=== PATIENT | female | born 1975 | race Caucasian/White ===

== ENCOUNTER 2024-07-03 10:41 | Outpatient (AMB) | payer OTHER, SELFPAY ==
--- NOTE | 2024-07-03 10:43 | MHC.PC.OV ---
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 Intake Note: new patient to establish care Insole Department Worker Required: No Allergies amoxicillin Allergy (Severe, Verified 07/03/24 11:02) Vomiting mold Allergy (Severe, Verified 07/03/24 11:02) Vomiting Penicillins Allergy (Severe, Verified 07/03/24 11:02) Vomiting sun Allergy (Severe, Uncoded 07/03/24 11:02) Blister Medication List - Last Reconciled 07/03/24 by SHANEKA ShineP- citalopram 10 mg PO DAILY clotrimazole-betamethasone 1-0.05 % 1 appl topical BID ketoconazole 2% 1 appl topical 3XW lorazepam 1 mg PO DAILY PRN nystatin 1 appl topical BID tirzepatide (Mounjaro) 2.5 mg subcut QWEEK Tobacco use date assessed: 07/03/24 Dental Screening Dental Screen Date: 07/03/24 Did you have a dental visit in the last 12 months?: No Did you have a dental problem in the last 6 months where you did not have access to dental care?: No Was dental information given to patient?: Yes HPI HPI Comments History of Present Illness Details 49 y/o F with ALLEN, MDD, obesity, DM 2, Ptsd, ADHD, psoriasis, kidney stones 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 No children, [address] Health Maintenance: Colon Mammo DEXA PAP Tdap- declined Flu - declined Specialists: Optho [facility] in [place] - July 2024 Derm - Bridget new referral today Uro [facility] Uro - Dr Payne Here today to [facility] No previous medical records: coming from [facility] ALLEN with panic and MDD: On celexa and ativan. Tried trazadone & trazadone the past w/o effect. Not in counseling at this time; was but was not helpful. SI in the past; denies @ current. ADHD - self reported. Not on meds. DM 2 - on Mounjaro - has been w/o for about 6 weeks. Has never been on oral meds. Monitoring Blood sugar at home. Reports 100 lb wt loss w/ Mounjaro. States negative diabetes eye exam 07/2023 @ [facility] Ren[facility] - states issues w/ stones, surgery & stenting. Active w/ Uro. Skin - recurrent rashes of different types; under breast fungal using antifungal, worse w/ hyperglycemia and sweating. Scalp and body rash using topical steroids. Not active w/ derm. would like referral. Exam Awake alert NAD RRR LS CTAB Under bilat breasts fungal rash Anxious, appropriate & cooperative Plan Increase celexa from 10mg to 20mg, cont PRN ativan Get labs today to est baseline & records request Declined tdap, flu. Derm referral - cont topical treatments. Will wait on lab results before addressing DM mgmt. Advised of insurance barriers with GLP1. RTO via telehealth in about 4-6 weeks to fu on lab results, cont care mgmt and anxiety mgmt with increase in celexa sooner PRN Patient was informed and verbally consented to the use of an ambient scribe for clinic note documentation during this visit. Total time spent caring for the patient today was 45 minutes. This includes time spent before the visit reviewing the chart, time spent during the visit, and time spent after the visit on documentation, reviewing laboratory results, diagnostic imaging, medications, performing a medically necessary evaluation, counseling on diagnoses, care coordination, ordering appropriate tests, ordering appropriate medications, review of tests performed by other providers, reporting test results with the patient, communication with other healthcare providers. [facility] Medical History (Updated 07/03/24 @ 13:11 by Yareli Fonseca, [facility]) Acute eczema Anxiety and depression Diabetes Gall stone Headache Incontinence Kidney disease Psoriasis PTSD (post-traumatic stress disorder) Sepsis Sinusitis Surgical History (Updated 07/03/24 @ 11:02 by Nai Chilel MA) H/O oral surgery History of kidney surgery Hx of tonsillectomy Family History (Updated 07/03/24 @ 11:06 by Nai Chilel MA) Sister Mental health disorder Father HTN (hypertension) High cholesterol Prostate cancer Paternal Grandfather HTN (hypertension) Cardiovascular disease Maternal Grandmother Thyroid disorder Thyroid cancer Mother Breast cancer Maternal Grandfather Substance abuse Social History (Updated 07/03/24 @ 11:03 by Nai Chilel MA) Household Members: Spouse Housing: Apartment Are you a primary caretaker grounds to a significant other at home: No Do you presently have visiting nurse or other home services: No Alcohol intake: current Alcohol intake frequency: a few times a month Patient Tobacco Use Status: Former Tobacco user Cigarettes Per Day: 2 Years Smoked: 20 e-Cigarette/Vaping Use: Never Used Second Hand Smoke Exposure: No Substance Use Type: Marijuana service: No Current occupational status: employed 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 1. Little interest or pleasure in doing things: nearly every day 2. Feeling down, depressed, or hopeless: nearly every day 3. Trouble falling or staying asleep, or sleeping too much: more than half the days 4. Feeling tired or having little energy: nearly every day 5. Poor appetite or overeating: several days 6. Feeling bad about yourself - or that you are a failure or have let yourself or your family down: nearly every day 7. Trouble concentrating on things, such as reading the newspaper or watching television: more than half the days 8. Moving or speaking so slowly that other people could have noticed. Or the opposite - being so fidgety or restless that you have been moving around a lot more than usual: not at all 9. Thoughts that you would be better off or of hurting yourself in some way: more than half the days Total score: 19 Depression Screening Interpretation: Positive Depression Screening Follow-up: Existing condition and In treatment Depression Screening Done: Yes 56344 - PHQ-9 Billing: Yes Source: Developed by Drs. Carlos Patton, Ninfa [place], Sergio Buenrostro and colleagues, with an educational gardenia from [employer]. Thrive Questionnaire Date Thrive assessed: 07/03/24 I am a: Patient What is your living situation today?: I have a steady place to live Within the past 12 months, did the food you bought not last and you didn't have the money to get more?: Never true Within the past 12 months, did you worry whether your food would run out before you got money to buy more?: Never true Do you have trouble paying for medicines?: Yes Do you have trouble getting transportation to medical appointments?: Yes Do you have trouble paying your heating and electricity bill?: No Do you have trouble taking care of your child, family member or friend?: No Do you have trouble with day-to-day activities such as bathing, preparing meals, shopping, managing finances, etc.?: No Are you currently unemployed and looking for a job?: No Are you interested in more education?: No Please select the resources that you would like help with: None Currently or been in a relationship where the following occur: No concerns reported THRIVE Score: 1 AUDIT C Alcohol Use Questionnaire (AUDIT-C) 1. How often do you have a drink containing alcohol?: Monthly or less 2. How many drinks containing alcohol do you have on a typical day when you are drinking?: 1 or 2 3. How often do you have six or more drinks on one occasion?: Never Total Score: 1 Score Reviewed/Action Taken: Yes ALLEN-7 AMB Questionnaire ALLEN-7 Date ALLEN - 7 assessed: 07/03/24 Feeling nervous, anxious, or on edge: 3 = Nearly every day Not being able to stop or control worryin = Nearly every day Worrying too much about different things: 3 = Nearly every day Trouble relaxin = Nearly every day Being so restless that it is hard to sit still: 0 = Not at all Becoming easily annoyed or irritable: 2 = More than half the days Feeling afraid as if something awful might happen: 2 = More than half the days Total ALLEN-7 score (0-4 normal; 5-9 mild; 10-14 moderate; 15-21 severe): 16 Source: Developed by Drs. Carlos Patton, Ninfa [place], Sergio Buenrostro and colleagues, with an educational gardenia from [employer]. ALLEN-7 Assessment Billing ALLEN-7 Assessment Tool: ALLEN-7 Assessment 81001 Physical exam (Primary Care) Vital Signs: Last Vital Signs Temp 97.2 F 07/03/24 10:54 Pulse 76 07/03/24 10:54 Resp 12 07/03/24 10:54 BP 118/72 07/03/24 10:54 Pulse Ox 97 07/03/24 10:54 Oxygen Delivery Method Room Air 07/03/24 10:54 BMI result Body Mass Index 57.5 BMI Assessment/Plan discussion: High BMI High, discussed plan: lifestyle Tobacco/Smoking Status: Tobacco use Status Tobacco use date assessed 07/03/24 07/03/24 10:56 Patient Tobacco Use Status Former Tobacco user 07/03/24 11:03 e-Cigarette/Vaping Use Never Used 07/03/24 11:03 PHQ-9: PHQ-9 Score PHQ-9: Total score 19 07/03/24 11:02 Depression Screening Interpretation: Positive Depression Screening Follow-up: Existing condition and In treatment Thrive Assessment: Date of Thrive Assessment Date Thrive assessed 07/03/24 07/03/24 10:44 Currently or been in a relationship where the following occur: No concerns reported Coding Level of Care Code New Pt Level 4 (86587) Complex EM visit Add On G2211 Diagnoses Severe episode of recurrent major depressive disorder, without psychotic features F33.2 Major depression episode severity: severe Psychotic features: without psychotic features ALLEN (generalized anxiety disorder) F41.1 Morbid (severe) obesity due to excess calories E66.01 Type 2 diabetes mellitus with hyperglycemia, without long-term current use of insulin E11.65 Diabetes mellitus group home insulin use: without group home use Diabetes mellitus complication status: with hyperglycemia Psoriasis L40.9 Candidal skin infection B37.2 Additional Codes ALLEN-7 Assessment Billing - ALLEN-7 Assessment Tool: ALLEN-7 Assessment 63232 ([id number]) PHQ-9 - 50855 - PHQ-9 Billing: Yes ([id number]) Assessment & Plan Assessment & Plan (1) MDD (major depressive disorder), recurrent episode: Code(s): F33.9 - Major depressive disorder, recurrent, unspecified Category: Medical Qualifiers: Major depression episode severity: severe Psychotic features: without psychotic features Qualified Code(s): F33.2 - Major depressive disorder, recurrent severe without psychotic features (2) ALLEN (generalized anxiety disorder): Code(s): F41.1 - Generalized anxiety disorder Category: Medical (3) Morbid (severe) obesity due to excess calories: Comment: with DM 2 Code(s): E66.01 - Morbid (severe) obesity due to excess calories Category: Medical (4) Diabetes type 2: Code(s): E11.9 - Type 2 diabetes mellitus without complications Category: Medical Qualifiers: Diabetes mellitus group home insulin use: without group home use Diabetes mellitus complication status: with hyperglycemia Qualified Code(s): E11.65 - Type 2 diabetes mellitus with hyperglycemia (5) Psoriasis: Code(s): L40.9 - Psoriasis, unspecified Category: Medical (6) Candidal skin infection: Code(s): B37.2 - Candidiasis of skin and nail Category: Medical Plan . Orders: Orders Comprehensive Met. Panel Today E11.9 - Type 2 diabetes mellitus without complications, E66.01 - Morbid (severe) obesity due to excess calories Hemoglobin A1c Today E11.9 - Type 2 diabetes mellitus without complications, E66.01 - Morbid (severe) obesity due to excess calories Microalbumin, Random (w Creat) Today E11.9 - Type 2 diabetes mellitus without complications, E66.01 - Morbid (severe) obesity due to excess calories Vitamin B12 and Folate Today E11.9 - Type 2 diabetes mellitus without complications, E66.01 - Morbid (severe) obesity due to excess calories Complete Blood Count no Diff Today E11.9 - Type 2 diabetes mellitus without complications, E66.01 - Morbid (severe) obesity due to excess calories Lipid Panel Today E11.9 - Type 2 diabetes mellitus without complications, E66.01 - Morbid (severe) obesity due to excess calories TSH reflex Free T4 Today E11.9 - Type 2 diabetes mellitus without complications, E66.01 - Morbid (severe) obesity due to excess calories Vitamin D 25-OH Total Today E11.9 - Type 2 diabetes mellitus without complications, E66.01 - Morbid (severe) obesity due to excess calories Referrals Dermatology Referral B37.2 - Candidiasis of skin and nail, L40.9 - Psoriasis, unspecified Medications: New citalopram (Celexa) 20 mg PO DAILY 30 tabs 1RF Patient Instructions: Walk-In Care (Urgent Care): We Make it Easy Walk-in for urgent medical issues such as: ? Seasonal Allergies ? Insect Bites ? Cough ? Diarrhea ? Acute Asthma Attacks ? Back, Knee or Joint Pain ? Ear Infection ? Fever without a Rash ? Headaches ? Nausea ? [place], Rash or Skin Irritation ? Sore Throat ? Sports Physicals ? Vomiting Most insurances are accepted. Patients do not need to be part of the [facility] to seek care at the walk-in clinic. Locations [facility] , [place] [address] ? [phone] [facility] Walk-In Care in [place] provides services to ages 18 and over. Open Tuesday-Tuesday: 8 a.m. to 5 p.m. and Tuesday: 9 a.m. to 3 p.m.* *Hours may vary due to staffing availability. To confirm Walk-In Care hours in [place], please call [phone]. [address] [place] [address] ? [phone] [facility] Walk-In Care in [place] provides services to ages 12 and over. Open Tuesday-Tuesday: 8 a.m. to 5 p.m. Hours may vary due to staffing availability. To confirm Walk-In Care hours in [place], please call [phone]. LABORATORY SERVICES: [facility] ? Primary Location [address] [place] [address] Tuesday through Tuesday 6:00 AM ? 5:00 PM Tuesday 7:00 AM ? 11:00 AM* [phone] The [facility] is centrally located near the front entrance of the [facility] for easy outpatient access. Convenient parking is provided for outpatients. *Hours may vary due to staffing availability. To confirm Laboratory hours for any location, please call [phone]. Offsite Location For your convenience, we offer offsite laboratory draw stations at the following locations: [address] [place] [address] ? [address], [address] Tuesday through Tuesday 7:30 AM ? 1:00 PM* [phone] *Hours may vary due to staffing availability. To confirm Laboratory hours for any location, please call [phone]. [place] ? [address] Tuesday through Tuesday 6:00 AM ? 3:30 PM* Tuesday 6:30 AM ? 3 PM* [phone] *Hours may vary due to staffing availability. To confirm Laboratory hours for any location, please call [phone] [place] [address] Tuesday through Tuesday 7:30 AM ? 4:00 PM* [phone] *Hours may vary due to staffing availability. To confirm Laboratory hours for any location, please call [phone] [place] [address] Tuesday through 9:00 AM ? 4:00 PM* *Hours may vary due to staffing availability. To confirm Laboratory hours for any location, please call [phone]. Appointments are not necessary. Walk-ins are welcome. Like all the departments throughout the [facility], our Lab undergoes frequent reviews to ensure the quality and accuracy of test results, and our staff takes special pride in its status as a nationally accredited facility. Patient Portal: ONE PATIENT. ONE RECORD. BETTER CARE. [facility] has a fully integrated, cutting-edge mobile electronic health information system that has revolutionized the way we care for our patients and manage our organization. This system improves communication and coordination enabling us to provide safe, higher-quality care, and an overall positive experience for staff and patients. Our first priority, as always, is to deliver the highest quality care possible. The system is running in the background supporting that priority. This portal is for all [facility] services and practices. If you are experiencing any technical difficulties with enrolling or logging into the Patient Portal please complete the [facility] Patient Portal Technical Support Form. [facility] now offers a new secure on-line interactive tool for patients to review their health information ? ?Patient Portal. This interactive web portal will enable patients and their families to take an active role in their care by providing easy, secure access to their health information via the internet. The Patient Portal provides patients with instant access to their health information, including laboratory results, medications, allergies, demographic information, visit history, and more. In addition to managing their own care, parents and health care proxies with authorized consent will appreciate the ability to access the records of those individuals for whom they provide care. Please note: if you wish to gain access (Proxy) to another patient?s portal, you will be required to come to the Medical Records Department in person at [facility]. Both the patient giving proxy access and the proxy will need to provide photo identification and complete the appropriate authorization. The Patient Portal also allows track their appointments online. The [facility] Patient Portal also saves patients time by allowing them to submit updates to their demographic and contact information prior to their visits. Portal email notifications will also alert patients to any new activity on their portal, such as test results and new appointments. In order to initially enroll in the [facility] Patient Portal, you will need to enter some required information including the following: your [facility] Medical Record number your personal home email address name date of Please note: In order to enroll in the [facility] Patient Portal, we need to have your email address on file in your electronic medical record. ?The email address needs to be specific for one person (yourself) in order for your Portal enrollment to be successful. ?You can update your email address in person with our Registration staff when you are registering for a hospital visit. ?Otherwise, you will need to come to the Health Information Management (Medical Records) Department at [facility]. ?We are open from Tuesday ? Tuesday from 7:30 a.m. ? 4:30 p.m. ?You will be required to present a photo id. Once you have successfully enrolled in the Patient Portal, you will receive a one-time user id and password for the Portal, sent to your email address. ?This will allow you to log into the Patient Portal within 99 hrs and reset your own logon id and password, and define personal security questions. ?Once your permanent login and password have been set, you can log into the [facility] Patient Portal at any time via the blue button above or from the Portal Logon button on any page of the [facility] website. [facility] encourage all of our patients to enroll in Patient Portal as it presents a valuable opportunity for patients and their families to actively participate in their care and stay healthy Welcome to [facility]. ?We look forward to working with you.
[2024-07-03 10:54] VITALS: BP 118/72; PULSE 76; RESP 12; TEMP 36.2; O2SAT 97; BMI 57.5
== END 2024-07-03 11:23 | disposition home or self-care (01) ==
LOC: HO.HMCFM 10:41
PROVIDERS: PCP Nurse Practitioner Family; Visit Provider Nurse Practitioner Family
DX: E11.65 Type 2 diabetes mellitus with hyperglycemia (principal); F33.2 Major depressive disorder, recurrent severe without psychotic features; E66.01 Morbid (severe) obesity due to excess calories; Z68.43 Body mass index [BMI] 50.0-59.9, adult; F41.1 Generalized anxiety disorder; L40.9 Psoriasis, unspecified; B37.2 Candidiasis of skin and nail

== ENCOUNTER → 2024-07-03 10:41 | Outpatient (BNVA) | payer OTHER, SELFPAY | PROVIDERS: PCP Nurse Practitioner Family; Visit Provider Nurse Practitioner Family | DX: F33.2 Major depressive disorder, recurrent severe without psychotic features (principal); F41.1 Generalized anxiety disorder; E66.01 Morbid (severe) obesity due to excess calories; Z68.43 Body mass index [BMI] 50.0-59.9, adult; E11.65 Type 2 diabetes mellitus with hyperglycemia; L40.9 Psoriasis, unspecified; B37.2 Candidiasis of skin and nail; Z79.899 Other long term (current) drug therapy | CPT/HCPCS: 96127 ==

== ENCOUNTER 2024-07-03 11:31 | Outpatient (REF) | payer OTHER, SELFPAY ==
[2024-07-03 14:27] LABS: Hematocrit 48.5 % (37.0-47.0); Hemoglobin 16.2 g/dl (12.0-16.0); Mean Corpuscular HGB Conc 33.4 g/dl (31.0-35.0); Mean Corpuscular Hemoglobin 31.3 pg (27.0-33.0); Mean Corpuscular Volume 93.8 fL (80.0-98.0); Mean Platelet Volume 10.1 fL (9.4-12.3); Platelet Count 402 X10*3/uL (160-400); Red Blood Count 5.17 X10*6/uL (4.20-5.50); Red Cell Distribution Width 12.6 % (11.0-16.0); White Blood Count 10.9 X10*3/uL (4.8-10.8)
[2024-07-03 14:36] LABS: Estimated Average Glucose 111 mg/dL; Hemoglobin A1c % 5.5 % (<6.0)
[2024-07-03 14:47] LABS: Alanine Aminotransferase 27 U/L (0-31); Alkaline Phosphatase 87 U/L (39-117); Anion Gap 11 (12-20); Aspartate Amino Transferase 25 U/L (5-31); Bilirubin Total 0.5 mg/dL (0.0-1.0); Blood Urea Nitrogen 16 mg/dL (9-16); Calcium 9.8 mg/dL (8.4-10.2); Carbon Dioxide 23 mmol/L (22-29); Chloride 108 mmol/L (96-108); Cholesterol 153 mg/dL (<200); Estimated Glomerular Filt Rate > 60; Glucose Random 144 mg/dL (60-115); HDL Cholesterol 41 mg/dL (>40); LDL Cholesterol Calculated 94 mg/dL (<100); Potassium 3.5 mmol/L (3.3-5.1); Sodium 138 mmol/L (135-145); Total Protein 7.4 g/dL (6.5-8.0); Triglycerides 91 mg/dL (<150)
[2024-07-03 15:04] LABS: TSH reflex Free T4 4.12 uIU/mL (0.32-4.0); Vitamin D 25-OH Total 8.5 ng/mL (>30)
[2024-07-03 15:16] LABS: Folate 3.2 ng/mL (> or = 4.0); Vitamin B12 219 pg/mL (200-900)
[2024-07-03 16:18] LABS: Free T4 (Free Thyroxine) 1.15 ng/dL (0.71-1.85)
== END 2024-07-03 11:32 | disposition home or self-care (01) ==
LOC: HO.WFDLDS 11:31
PROVIDERS: Visit Provider Nurse Practitioner Family
DX: E11.9 Type 2 diabetes mellitus without complications (principal); E66.01 Morbid (severe) obesity due to excess calories
CPT/HCPCS: 36415; 80053; 80061; 82306; 82607; 82746; 83036; 84439; 84443; 85027

== ENCOUNTER 2024-07-11 11:14 | Outpatient (REF) | payer OTHER, SELFPAY ==
[2024-07-11 12:26] LABS: Creatinine Urine 118.92 mg/dL; Microalbum/Creatinine Ratio Ur 7.5 ug/mg cr (<30)
--- OUTSIDE RECORDS SUMMARY | 2024-07-11 13:40 | XMS_ITS | Clinical Summary ---
Author Organization [facility] [address] [place] [address] [place] [address] Phone Care Team Providers Care Crop Duster Helper Name Role Phone Russell Red MD Primary Care Provider Allergies Active Allergy Reactions Criticality Noted Date Comments Amoxicillin Nausea And Vomiting 04/07/2015 Penicillins Nausea And Vomiting 04/07/2015 Active Problems Problem Noted Date Diagnosed Date Morbid obesity with BMI of 70 and over, adult Type 2 diabetes mellitus without complication Anxiety and depression 04/07/2015 Immunizations Name Administration Dates Next Due Pfizer SARS-CoV-2 COVID-19, mRNA, LNP-S, preservative free 01/27/2021,07/23/2020,07/02/2020 Medical History Medical History Date Comments Diabetes ([facility]/HCC) DX:Diabetes ( [facility]) Social History Tobacco Use Types Packs/Day Years Used Date Smoking Tobacco: Never Assessed Comments Unknown Sex and Gender Information Value Date Recorded Sex Assigned at Female 02/23/2024 12:55 PM EST Legal Sex Female 4:29 PM EST Gender Identity Female 02/23/2024 12:55 PM EST Sexual Orientation Something else 02/23/2024 12 :55 PM EST Obstetrics History Plan of Treatment Upcoming Encounters Date Type Department Care Team (Late st Contact Info) Description 08/03/2024 11:30 AM EDT Office Visit Adult Medicine [facility] [address] [place] [address] Kendal Jones PA [address] [place], [place] 10/05/2024 11:30 AM EDT Office Visit Adult Medicine [facility] [address] [place], [place] [phone] Kendal Jones PA [address] [place], [place] Health Maintenance Due Date Last Done Comments Breast Cancer Screening 1977 Diabetes: Annual Foot Exam 1987 Diabetes: Annual Retina Eye Exam 1987 DTaP,Tdap,and Td Vaccines (1 - Tdap) 1996 Hepatitis B Vaccines (1 of 3 - 19+ 3-dose series) 1996 Pneumococcal Vaccine: Pediatrics (0 to 5 Years) and At-Risk Patients (6 to 64 Years) (1 of 2 - PCV) 1996 Cervical Cancer Screening: Pap Smear 06/10/2018 06/11/2015, 06/11/2015 COVID-19 Vaccine ( season) 2023 01/27/2021, 07/23/2020, 07/02/2020 Cholesterol Screening (Lipid Panel) 01/19/2024 11/10/2018 Colorectal Cancer Screening: Colonoscopy 01/19/2024 Depression Screening 01/19/2024 Diabetes: Annual Urine Albumin-Creatinine Ratio (uACR) 01/19/2024 Diabetes: Blood Sugar Control Test (HGBA1C) 01/19/2024 11/10/2018 HIV Screening 01/19/2024 Hepatitis C Screening 01/19/2024 Social Influencers of Health Screening 01/19/2024 Diabetes: Annual GFR (Glomerular Filtration Rate) 10/06/2024 10/07/2023, 10/07/2023, 10/07/2023, Additional history exists Influenza Vaccine (Season Ended) 2024 HIB Vaccines Aged Out No longer eligi ble based on patient's age to complete this topic HPV Vaccines Aged Out No longer eligi ble based on patient's age to complete this topic Hepatitis A Vaccines Aged Out No long er eligible based on patient's age to complete this topic IPV Vaccines Aged Out No longer eligi ble based on patient's age to complete this topic MMR Vaccines Aged Out No longer eligi ble based on patient's age to complete this topic Meningococcal ACWY Vaccine Aged Out N o longer eligible based on patient's age to complete this topic Meningococcal B Vacine Aged Out No lo nger eligible based on patient's age to complete this topic RSV Immunization Patients Under 20 months Aged Out No longer eligible based on patient's age to complete this topic Varicella Vaccines Aged Out No longer eligible based on patient's age to complete this topic Procedures Procedure Name Priority Date/Time Associated Diagnosis Comments ANNUAL BMP BLOOD TEST Routine 11/10/2018 HEMOGLOBIN A1C Routine 11/10/2018 LIPID PANEL Routine 11/10/2018 HPV Routine 06/11/2015 from Last 3 Months or Most Recently Relevant to Health Maintenance Results * Annual BMP Blood Test (11/10/2018) Annual BMP Blood Test abstracted Result [facility] Provider HEALTH MAINTENANCE Final Result * (ABNORMAL) Hemoglobin A1c (11/10/2018) Hemoglobin A1C 6.7(A) <=6.5 % Blood Venous blood specimen / Unknown Result [facility] Provider LAB BLOOD ORDERABLES Molly l Result * (ABNORMAL) Lipid panel (11/10/2018) LDL/HDL Ratio 4 0 - 4 Triglycerides 169(A) 0 - 150 mg/dL Cholesterol 140 0 - 200 mg/dL HDL 33(A) >=40 mg/dL LDL Cholesterol 74 0 - 100 mg/dL Blood Venous blood specimen / Unknown Result [facility] Provider LAB BLOOD ORDERABLES Molly l Result * Cervical Cancer Screening: HPV (06/11/2015) Pathologist [facility] Cervical Cancer Screening: HPV normal, abstracted us Historical Provider HEALTH MAINTENANCE Final Result from Last 3 Months or Most Recently Relevant to Health Maintenance Insurance [facility] Care Teams Crop Duster Helper Relationship Specialty Start Date End Date Russell Red MD [address] [place] [address] PCP - General Internal Medicine 02/23/24
--- OUTSIDE RECORDS SUMMARY | 2024-07-11 13:40 | XMS_ITS | Clinical Summary ---
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 0 Active Active Problems No known active problems Social History Tobacco Use Types Packs/Day Years Used Date Smoking Tobacco: Never Assessed Sex and Gender Information Value Date Recorded Sex Assigned at Female 10/07/2023 8:21 PM EDT Gender Identity Not on file Sexual Orientation Not on file Job Start Date Occupation Industry Not on file Not on file Not on file Last Filed Vital Signs Vital Sign Reading Time Taken Comments Blood Pressure 129/58 10/08/2023 2:36 AM EDT Pulse 115 10/08/2023 2:36 AM EDT Temperature 37.6 ??C (99.7 ??F) 10/08/2023 2:36 AM ED T Respiratory Rate 22 10/08/2023 2:36 AM EDT Oxygen Saturation 96% 10/08/2023 2:36 AM EDT Inhaled Oxygen Concentration - - Weight 176 kg (388 lb) 10/07/2023 8:00 PM EDT Height 162.6 cm (5' 4 ) 10/07/2023 8:00 PM EDT Body Mass Index 66.6 10/07/2023 8:00 PM EDT Plan of Treatment Health Maintenance Due Date Last Done Comments Hepatitis B Vaccines (1 of 3 - 3-dose series) 1977 Hepatitis C Screening 1977 Depression Screening 1989 Preventative Health Evaluation 1995 DTap / Tdap / Td (1 - Tdap) 1996 Cervical Cancer Screening (Pap Smear) 1998 Colon Cancer Screening (Colonoscopy) 2022 COVID-19 Vaccine (2023-2 5 season) 2023 01/27/2021, 07/23/2020, 07/02/2020 Influenza Vaccine (#1) 2023 Pneumococcal Vaccine Aged Out No long er eligible based on patient's age to complete this topic RSV Ped < 20 months Aged Out No longe r eligible based on patient's age to complete this topic Care Teams Slime Plant 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
--- OUTSIDE RECORDS SUMMARY | 2024-07-11 13:41 | XMS_ITS | Continuity of Care Document ---
Author Organization 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 [address] [place] [address]- Encounter Type: Triage Allergies, Adverse Reactions, Alerts Substance Criticality Severity Reaction Reaction Severity Status clindamycin rash Active amoxicillin Vomiting Active penicillin vomits Active Immunizations Given and Recorded Vaccine Date Status Refusal Reason SARS-CoV-2 (COVID-19) mRNA BNT-162b2 vac 01/27/21 Recorded SARS-CoV-2 (COVID-19) mRNA BNT-162b2 vac 07/23/20 Recorded SARS-CoV-2 (COVID-19) mRNA BNT-162b2 vac 07/02/20 Recorded Medications betamethasone-clotrimazole 0.05%-1% topical cream See Instructions, APPLY TO AFFECTED AREA TWICE A DAY FOR RASH, # 90 Gm, 2 Refills, Maintenance, 01/20/24 10:20:00 AM EDT, [facility]/pharmacy #[id number], 30, APPLY TO AFFECTED AREA TWICE A DAY FOR RASH, 163, cm,11/04/23 10:56:00 EDT, Height, 167.3, kg, 11/04/23 10:56:00 EDT, Dry Weight Start Date: 01/20/24 Status: Ordered Quantity: 90.0 Unit: g Repeat number: 3 citalopram 10 mg oral tablet 10 mg, 1, tablet, By Mouth, Daily, # 90 tablet, Refills 3, Tot. Refills 3, Maintenance, 07/27/23 2:24:00 PM EDT, [id number] Partial fill upon patient requestif the prescription is for a schedule II opioid drug., 163, cm, 07/27/23 14:07:00 EDT, Height Start Date: 07/27/23 Status: Ordered Quantity: 90.0 Unit: tablet Repeat number: 4 ibuprofen 600 mg oral tablet 1, tablet, By Mouth, 4 times a day, WITH PERIODS., # 60 tablet, Refills 2, Maintenance, 07/27/22 10:43:00 AM EDT, Route to Pharmacy Electronically, [facility] STORE [id number], 163, cm, 01/25/22 14:21:00 EDT, Height Start Date: 07/27/22 Status: Ordered Quantity: 60.0 Unit: tablet Repeat number: 1 INTERDRY INTERDRY, See Instructions, # 1 each, Refills 1, Tot. Refills 1, Maintenance, InterDry Moisture-wicking fabric.Area Size 10 in x18 inch sheets, 01/25/24 1:29:00 PM EDT, Supply Start Date: 01/25/24 Status: Ordered Quantity: 1.0 Unit: each Repeat number: 2 Indication: Candidiasis of skin and nail ketoconazole 2% topical shampoo See Instructions, USE THREE TIMES WEEKLY IN THE SHOWER, # 240 mL, 1 Refills, Maintenance, 12/16/23 1:57:00 PM EDT, [facility]/pharmacy #[id number], 30, USE THREE TIMES WEEKLY IN THE SHOWER, 163, cm, 11/04/23 10:56:00 EDT, Height, 167.3, kg, 11/04/23 10:56:00 EDT, Dry Weight Start Date: 12/16/23 Status: Ordered Quantity: 240.0 Unit: mL Repeat number: 2 LORazepam 1 mg oral tablet 1 tablet = 1 mg, By Mouth, Daily, PRN as needed for anxiety, # 10 tablet, 0 Refills, Maintenance, 03/28/24 8:41:00 AM EST, Tablet, [facility]/pharmacy #[id number], Partial fill upon patient request if the prescription is for a schedule II opioid drug., 163, cm, 11/04/23 10:56:00 EDT, Height, 167.3, kg, 11/04/23 10:56:00 EDT, Dry Weight Start Date: 03/28/24 Status: Ordered Quantity: 10.0 Unit: tablet Repeat number: 1 Mounjaro 2.5 mg/0.5 mL subcutaneous solution = 2.5 mg, Subcutaneous Injection, Every week, rotate injection sites, # 4 each, 2 Refills, Maintenance, 12/26/23 11:39:00 AM EDT, Solution, [id number], Patient will continue 2.5 mg weekly until 5 mg becomes available, 163, cm, 11/04/23 10:56:00 EDT, Height, 167.3, kg, 11/04/23 10:56:00 EDT, Dry Weight Start Date: 12/26/23 Status: Ordered Quantity: 4.0 Unit: each Repeat number: 3 Indication: Type 2 diabetes mellitus without complications Mounjaro 2.5 mg/0.5 mL subcutaneous solution = 2.5 mg, Subcutaneous Injection, Every week, rotate injection sites, # 4 each, 2 Refills, Maintenance, 01/23/24 12:45:00 PM EDT, Solution, [id number], patient did not tolerate 5 mg due to side effects. going back down to 2.5 mg weekly, 163, cm, 11/04/23 10:56:00 EDT, Height, 167.3, kg, 11/04/23 10:56:00 EDT, Dry Weight Start Date: 01/23/24 Status: Ordered Quantity: 4.0 Unit: each Repeat number: 3 Indication: Type 2 diabetes mellitus without complications norethindrone 5 mg oral tablet 1, tablet, By Mouth, 2 times a day, # 90 tablet, Refills 1, Maintenance, 07/27/22 10:43:00 AM EDT, Route to Pharmacy Electronically, [facility] STORE [id number], 163, cm, 01/25/22 14:21:00 EDT, Height Start Date: 07/27/22 Status: Ordered Quantity: 90.0 Unit: tablet Repeat number: 1 nystatin topical [id number] u/gm powder See Instructions, APPLY BETWEEN SKIN FOLDS 2 TIMES PER DAY NEEDED FOR RASH, # 60 Gm, 5 Refills, Maintenance, 01/20/24 2:28:00 PM EDT, [facility]/pharmacy #[id number], 30, APPLY BETWEEN SKIN FOLDS 2 TIMES PER DAY NEEDED FOR RASH, 163, cm, 11/04/23 10:56:00 EDT, Height, 167.3, kg, 11/04/23 10:56:00 EDT, DryWeight Start Date: 01/20/24 Status: Ordered Quantity: 60.0 Unit: g Repeat number: 6 Omnicef Omni-Pac = 300 mg, By Mouth, Every 12 hours, taking for kidney infection, 0 Refills, Maintenance, 10/27/23 1:13:00 PM EDT, Partial fill upon patient request if the prescription is for a schedule II opioid drug. Start Date: 10/27/23 Status: Ordered Repeat number: 1 Problem List Condition Confirmation Course Effective Dates Status H ealth Status Informant Anxiety and depression Confirmed Active BMI 70 and over, adult Confirmed Active Nephrolithiasis Confirmed Active Elevated LFTs Confirmed Active Menorrhagia Confirmed Active Morbid obesity Confirmed Active Right-sided chest pain Confirmed Active Severe obesity Confirmed Active Subclinical hypothyroidism Confirmed Active Uncontrolled type 2 diabetes mellitus with hyperglycemia Confirmed Active Social History Social History Type Response Smoking Status Former smoker, quit more than 30 days ago; Other: smoked for 20 years, 5-6 packs per year; entered on: 02/15/19 Sex Sex Representation Female (finding) Patient Care team information Care Team Personnel Name: Susan Rodriguez NP Position: S PCO Associate Professional Member Role: PCP Address: [address] [place] [address] [place], [place] [address] Telecom: Care Team Related Persons Name: WALTER GUTHRIE Name: PERRY TREVIZO Name: RIDDHI TREVIZO Insurance Providers Guarantor name: PASCALE COELLO [facility] Plan Information #: 1 Payer: [employer] Member Number: NA Policy Number: NA Group Number: NA
== END 2024-07-11 11:15 | disposition home or self-care (01) ==
LOC: HO.LNP 11:14
PROVIDERS: Visit Provider Nurse Practitioner Family
DX: E11.9 Type 2 diabetes mellitus without complications (principal); E66.01 Morbid (severe) obesity due to excess calories
CPT/HCPCS: 82043; 82570

== ENCOUNTER → 2024-07-19 12:22 | Outpatient (BNVA) | payer OTHER, SELFPAY | PROVIDERS: PCP Nurse Practitioner Family ==

== ENCOUNTER → 2024-08-14 09:18 | Outpatient (BNVA) | payer OTHER, SELFPAY | PROVIDERS: PCP Nurse Practitioner Family; Visit Provider Dietitian, Registered ==